=== PATIENT | male | born 1945 | race Two or more races ===

== ENCOUNTER 2016-11-10 13:48 | Outpatient (CLI) | payer MEDICARE, BC | END 2016-11-10 23:59 | disposition home or self-care (01) | LOC: WOU 13:48 | PROVIDERS: ATTEND Surgery | DX: S61.411A Laceration without foreign body of right hand, initial encounter (principal); W25.XXXA Contact with sharp glass, initial encounter; Y92.89 Other specified places as the place of occurrence of the external cause; E78.5 Hyperlipidemia, unspecified; M19.90 Unspecified osteoarthritis, unspecified site | CPT/HCPCS: 11042 ==